=== PATIENT | male | born 1950 | race Native Hawaiian/Other Pacific Islander ===

== ENCOUNTER 2018-12-19 14:11 | Outpatient (CLI) | payer OTHER | END 2018-12-19 19:48 | disposition home or self-care (01) | LOC: RAD 14:11 | DX: M79.672 Pain in left foot (principal) ==

== ENCOUNTER 2019-01-16 11:53 | Outpatient (CLI) | payer OTHER | END 2019-01-16 19:49 | disposition home or self-care (01) | LOC: RAD 11:53 | DX: M54.2 Cervicalgia (principal) ==

== ENCOUNTER 2023-03-17 15:26 | Outpatient (CLI) | payer OTHER | END 2023-03-17 19:01 | disposition home or self-care (01) | LOC: US 15:26 | PROVIDERS: ATTEND Internal Medicine | DX: I50.9 Heart failure, unspecified (principal); R42 Dizziness and giddiness; R53.83 Other fatigue; R06.02 Shortness of breath; I25.2 Old myocardial infarction ==

== ENCOUNTER 2023-04-22 10:04 | Outpatient (CLI) | payer OTHER | END 2023-04-22 19:44 | disposition home or self-care (01) | LOC: RAD 10:04 | PROVIDERS: ATTEND Internal Medicine | DX: M25.511 Pain in right shoulder (principal) ==

== ENCOUNTER 2023-05-08 13:11 | Emergency (ER) | payer OTHER ==
[~2023-05-08] VITALS: Ht 185.4 cm; Wt 99.8 kg
[2023-05-08 13:26] LABS: PLATELET COUNT 273 K/uL (142-355)
[2023-05-08 13:33] LABS: PARTIAL THROMBOPLASTIN TIME 23.7 SECONDS (23.9-36.7)
[2023-05-08 14:40] VITALS: BP 109/62; TEMP 97.8
== END 2023-05-08 14:40 | disposition short-term general hospital (02) ==
LOC: ED 13:11
PROVIDERS: Family Medicine
DX: I21.4 Non-ST elevation (NSTEMI) myocardial infarction (principal); X30.XXXA Exposure to excessive natural heat, initial encounter
CPT/HCPCS: 36415; 80053; 82550; 84484; 85027; 85610; 85730; 93005; 96361; 96365; 96375; 99285; J1644; J3490

== ENCOUNTER 2023-07-06 08:21 | Outpatient (CLI) | payer OTHER | END 2023-07-06 19:02 | disposition home or self-care (01) | LOC: MRI 08:21 | PROVIDERS: ATTEND Internal Medicine | DX: M25.511 Pain in right shoulder (principal) ==